=== PATIENT | female | born 1985 | race African-American/Black ===

== ENCOUNTER 2023-02-05 19:32 | Emergency (ER) | payer SELFPAY ==
[~2023-02-05] VITALS: Ht 157.5 cm; Wt 54.8 kg
[2023-02-05 20:19] LABS: BASOPHILS % 0.6 % (0.0-2.0); EOSINOPHILS % 0.1 % (0.0-5.0); HEMATOCRIT. 30.8 % (36.0-48.0); HEMOGLOBIN. 10.6 g/dL (12.0-16.0); LYMPHOCYTES % 13.3 % (20.0-50.0); MEAN CORPUSCULAR HEMOGLOBIN 24.6 pg (28.0-32.0); MEAN CORPUSCULAR VOLUME 71.7 fL (81.0-99.0); MEAN PLATELET VOLUME 7.6 fl (7.4-10.4); MONOCYTES % 2.2 % (2.0-8.0); NEUTROPHILS % 83.8 % (40.0-76.0); PLATELET 337 x1000/uL (130-400); RED CELL DISTRIBUTION WIDTH 21.1 % (11.6-14.6)
[2023-02-05 20:30] LABS: CHLORIDE 103 mEq/L (98-107)
[2023-02-05] MEDS ORDERED: ONDANSETRON HCL 4MG/2ML INJ IV STA (21:34)
[2023-02-05] MEDS ORDERED: FAMOTIDINE 20MG/2ML VIAL IV ONE (21:45)
[2023-02-05] MEDS ORDERED: SODIUM CHLORIDE 0.9% 1,000 ML IV ONE (21:45)
[2023-02-05 21:47] LABS: CLARITY URINE CLEAR (CLEAR); COLOR URINE YELLOW (YELLOW); KETONES URINE 4+ (NEGATIVE); LEUKOCYTE ESTERASE URINE NEGATIVE (NEGATIVE); NITRITE URINE NEGATIVE (NEGATIVE); OCCULT BLOOD URINE NEGATIVE (NEGATIVE); PH URINE 5.5 (4.5-8.0); PROTEIN URINE TRACE (NEGATIVE); SPECIFIC GRAVITY URINE 1.032 (1.005-1.030)
[2023-02-05 22:11] LABS: B-HCG QUANTITATIVE 77306 mIU/mL (<3)
[2023-02-05] MEDS ORDERED: ACETAMINOPHEN 325MG TABLET PO ONE (23:45)
[2023-02-06] MEDS ORDERED: POLY119P2 MT (01:43)
[2023-02-06 02:25] VITALS: BP 106/76
== END 2023-02-06 02:43 | disposition home or self-care (01) ==
LOC: ER 19:32 → UNDOADMIN 02-06 01:39 → MICUSO 02-06 01:39 → UNDODISIN 02-06 02:31
DX: O26.891 Other specified pregnancy related conditions, first trimester (principal); Z3A.13 13 weeks gestation of pregnancy; O21.0 Mild hyperemesis gravidarum
CPT/HCPCS: 36415; 76801; 80053; 81003; 83690; 84702; 85025; 96361; 96374; 96375; 99285; J2405; J3490; J7030; Z7610